=== PATIENT | male | born 1935 | race Asian ===

== ENCOUNTER → 2016-08-09 | Outpatient (CLI) | payer MEDICARE, OTHER ==
[~2016-08-09] MED LIST: ACET-66 PO; ACLI400A2 PO; ALLO100T PO; AMLO-512 PO; ATOR10TA69 PO; AZEL23SP NASAL; CINA30 PO; COLC0.6T69 PO; CYCL05OE OU; DUTA.5 PO; HC1C30 TP; HYDR25 PO; METF500T4 PO; METH1ADH TP; METO-325 PO; MONT10TA21 PO; OLOP2.5D OP; PREG75 PO; VIT1CAPS28 PO
== END | disposition home or self-care (01) ==
LOC: RADMN 09:16
PROVIDERS: ATTEND Internal Medicine Pulmonary Disease
DX: R91.1 Solitary pulmonary nodule (principal); I70.0 Atherosclerosis of aorta; I25.10 Atherosclerotic heart disease of native coronary artery without angina pectoris; D71 Functional disorders of polymorphonuclear neutrophils; K76.9 Liver disease, unspecified; N28.1 Cyst of kidney, acquired; M47.894 Other spondylosis, thoracic region
CPT/HCPCS: 71250

== ENCOUNTER → 2016-08-17 | Outpatient (CLI) | payer MEDICARE, OTHER | END | disposition home or self-care (01) | LOC: LABPV 14:47 | PROVIDERS: ATTEND Internal Medicine Pulmonary Disease | DX: J98.4 Other disorders of lung (principal) | CPT/HCPCS: 86171; 86480 ==

== ENCOUNTER → 2016-11-18 | Outpatient (CLI) | payer MEDICARE, OTHER ==
[~2016-11-18] MED LIST changes: +COLC0.6T67 PO; -COLC0.6T69 PO; -HC1C30 TP; -HYDR25 PO; +HYDR25TA84 PO; +HYDR28.45 TP; -METO-325 PO; +METO-558 PO
== END | disposition home or self-care (01) ==
LOC: RADMN 08:43
PROVIDERS: ATTEND Internal Medicine Pulmonary Disease
DX: J98.4 Other disorders of lung (principal); I70.0 Atherosclerosis of aorta; I25.10 Atherosclerotic heart disease of native coronary artery without angina pectoris; N28.1 Cyst of kidney, acquired; J84.10 Pulmonary fibrosis, unspecified
CPT/HCPCS: 71250

== ENCOUNTER → 2017-06-17 | Outpatient (CLI) | payer MEDICARE, OTHER | END | disposition home or self-care (01) | LOC: RADPV 08:05 | PROVIDERS: ATTEND Internal Medicine | DX: N28.1 Cyst of kidney, acquired (principal); K80.20 Calculus of gallbladder without cholecystitis without obstruction; R79.89 Other specified abnormal findings of blood chemistry | CPT/HCPCS: 76700 ==

== ENCOUNTER → 2017-07-28 | Outpatient (CLI) | payer MEDICARE, OTHER ==
[~2017-07-28] MED LIST changes: +METF-444 PO; -METF500T4 PO
== END | disposition home or self-care (01) ==
LOC: RADMN 08:59
PROVIDERS: ATTEND Internal Medicine
DX: N28.1 Cyst of kidney, acquired (principal); K57.30 Diverticulosis of large intestine without perforation or abscess without bleeding; I70.0 Atherosclerosis of aorta; K76.89 Other specified diseases of liver; D73.89 Other diseases of spleen
CPT/HCPCS: 74176

== ENCOUNTER 2018-08-27 09:46 | Emergency (ER) | payer MEDICARE, OTHER ==
[~2018-08-27] VITALS: Ht 165.1 cm; Wt 50.0 kg
[~2018-08-27 09:46] MED LIST changes: -ACLI400A2 PO; +ACLI400A3 PO; -AMLO-512 PO; +AMLO10TA7 PO
[2018-08-27 10:37] LABS: BASOPHILS % (AUTO) 0.9 % (0.0-2.0); EOSINOPHILS % (AUTO) 1.7 % (1.0-6.0); HEMATOCRIT 30.7 % (41-53); HEMOGLOBIN 10.1 g/dL (13.5-17.5); LYMPHOCYTES # (AUTO) 0.9 K/uL (1.0-4.8); LYMPHOCYTES % (AUTO) 20.9 % (22.0-44.0); MEAN CORPUSCULAR HEMOGLOBIN 29.8 pg (26.0-34.0); MEAN CORPUSCULAR HGB CONC 32.8 G/dL (31.0-37.0); MEAN CORPUSCULAR VOLUME 91 fL (80-100); MONOCYTES # (AUTO) 0.5 K/uL (0.1-1.0); MONOCYTES % (AUTO) 11.4 % (2.0-9.0); NEUTROPHILS # (AUTO) 2.8 K/uL (1.8-7.7); NEUTROPHILS % (AUTO) 65.1 % (40.0-70.0); PLATELET COUNT (AUTO) 152 K/uL (150-450); RED BLOOD CELL COUNT(AUTO) 3.38 MIL/uL (4.50-5.90); RED CELL DISTRIBUTION WIDTH 17.2 % (11.5-14.5)
[2018-08-27 10:46] LABS: CALCIUM, TOTAL 8.1 mg/dL (8.8-10.5); CREATININE 2.18 mg/dL (0.60-1.30); POTASSIUM 3.9 mmol/L (3.5-5.1); PROTHROMBIN TIME 10.9 SEC (9.4-11.6)
[2018-08-27] MEDS ORDERED: SODIUM CHLORIDE 0.9% 1,000 ML IV ONE (11:00)
[2018-08-27 11:11] LABS: ALBUMIN 3.5 g/dL (3.4-5.0); BILIRUBIN,TOTAL 0.5 mg/dL (0.1-1.0); TOTAL PROTEIN, SERUM 7.1 g/dL (6.4-8.2)
[2018-08-27 11:38] LABS: APPEARANCE,URINE CLEAR (CLEAR); BILIRUBIN,URINE NEGATIVE (NEGATIVE); GLUCOSE, URINE (UA) NEGATIVE (NEGATIVE); KETONES,URINE NEGATIVE (NEGATIVE); LEUKOCYTE ESTERASE ,URINE NEGATIVE (NEGATIVE); NITRATE,URINE NEGATIVE (NEGATIVE); OCCULT BLOOD,URINE NEGATIVE (NEGATIVE); UROBILINOGEN,URINE 0.2 mg/dL (<=1.0)
[2018-08-27 11:56] LABS: PROTEIN,URINE NEGATIVE (NEGATIVE)
[2018-08-27 14:01] VITALS: BP 141/64
== END 2018-08-27 14:03 | disposition home or self-care (01) ==
LOC: EMS 09:48
DX: R55 Syncope and collapse (principal); R20.2 Paresthesia of skin; R06.02 Shortness of breath; I13.10 Hypertensive heart and chronic kidney disease without heart failure, with stage 1 through stage 4 chronic kidney disease, or unspecified chronic kidney disease; N18.9 Chronic kidney disease, unspecified; E11.22 Type 2 diabetes mellitus with diabetic chronic kidney disease; J44.9 Chronic obstructive pulmonary disease, unspecified; E78.00 Pure hypercholesterolemia, unspecified; Z88.0 Allergy status to penicillin
CPT/HCPCS: 70450; 93005

== ENCOUNTER → 2018-10-03 | Outpatient (CLI) | payer MEDICARE, OTHER ==
[~2018-10-03] MED LIST changes: -ACLI400A3 PO; -AZEL23SP NASAL; -COLC0.6T67 PO; +COLC0.6T76 PO; -METH1ADH TP; -PREG75 PO
== END | disposition home or self-care (01) ==
LOC: RADMN 09:09
PROVIDERS: ATTEND Internal Medicine Pulmonary Disease
DX: J32.2 Chronic ethmoidal sinusitis (principal); J32.0 Chronic maxillary sinusitis; J32.1 Chronic frontal sinusitis
CPT/HCPCS: 70486

== ENCOUNTER 2023-08-01 11:55 | Emergency (ER) | payer MEDICARE, OTHER ==
[~2023-08-01] VITALS: Ht 162.6 cm; Wt 51.8 kg
[~2023-08-01 11:55] MED LIST changes: +ALLO-97 PO; -ALLO100T PO; +AMLO-258 PO; -AMLO10TA7 PO; +COLC0.6T73 PO; -COLC0.6T76 PO; -DUTA.5 PO; +DUTA0.5C38 PO; -HYDR28.45 TP; +HYDR30CR39 TP; +METO-325 PO; -METO-558 PO; +MONT-35 PO; -MONT10TA21 PO; -OLOP2.5D OP; +OLOP2.5D12 OP
[2023-08-01] MEDS ORDERED: METOPROLOL PO (12:22)
[2023-08-01] MEDS ORDERED: VARI50KI IM (12:22)
[2023-08-01] MEDS ORDERED: DUTA0.5C38 PO (12:22)
[2023-08-01] MEDS ORDERED: FINE10TA PO (12:22)
[2023-08-01] MEDS ORDERED: DAPA10TA PO (12:22)
[2023-08-01] MEDS ORDERED: LEVO2.5S4 PO (12:22)
[2023-08-01] MEDS ORDERED: SACU1TAB7 PO (12:22)
[2023-08-01] MEDS ORDERED: COLC0.6C PO (12:22)
[2023-08-01] MEDS ORDERED: FERR-82 PO (12:22)
[2023-08-01] MEDS ORDERED: DAPA10TA7 PO (12:22)
[2023-08-01] MEDS ORDERED: DUPI300S MISC (12:22)
[2023-08-01] MEDS ORDERED: FLUT1BLS3 IH (12:22)
[2023-08-01] MEDS ORDERED: AMLO5TAB66 PO (12:22)
[2023-08-01] MEDS ORDERED: DOCU100C34 PO (12:26)
[2023-08-01] MEDS ORDERED: SODI650T33 PO (12:26)
[2023-08-01] MEDS ORDERED: HYDR25TA84 PO (12:26)
[2023-08-01] MEDS ORDERED: ISOSORBIDE PO (12:26)
[2023-08-01 14:54] VITALS: TEMP 98
[2023-08-01] MEDS ORDERED: ISOS30TA92 PO (17:39)
[2023-08-01] MEDS ORDERED: LEVO5TAB13 PO (17:39)
[2023-08-01] MEDS ORDERED: METO25 PO (17:39)
[2023-08-01 17:54] LABS: BASOPHILS % (AUTO) 0.6 % (0.0-2.0); EOSINOPHILS % (AUTO) 3.4 % (1.0-6.0); HEMATOCRIT 28.8 % (41-53); HEMOGLOBIN 9.4 g/dL (13.5-17.5); LYMPHOCYTES # (AUTO) 1.7 K/uL (1.0-4.8); MEAN CORPUSCULAR HEMOGLOBIN 31.8 pg (26.0-34.0); MEAN CORPUSCULAR HGB CONC 32.7 G/dL (31.0-37.0); MEAN CORPUSCULAR VOLUME 97 fL (80-100); MONOCYTES # (AUTO) 0.5 K/uL (0.1-1.0); NEUTROPHILS # (AUTO) 1.7 K/uL (1.8-7.7); PLATELET COUNT (AUTO) 154 K/uL (150-450); RED BLOOD CELL COUNT(AUTO) 2.97 MIL/uL (4.50-5.90); RED CELL DISTRIBUTION WIDTH 18.1 % (11.5-14.5); WHITE BLOOD COUNT (AUTO) 4.1 K/uL (4.5-11.0)
[2023-08-01] MEDS: SODIUM CHLORIDE 0.9% 1,000 ML IV ONE (18:01)
[2023-08-01 18:04] LABS: CALCIUM, TOTAL 9.4 mg/dL (8.8-10.5); CREATININE 2.4 mg/dL (0.60-1.30); POTASSIUM 5.4 mmol/L (3.5-5.1)
[2023-08-01 18:08] LABS: PROTHROMBIN TIME 10.9 SEC (9.4-11.6)
[2023-08-01 18:13] LABS: TROPONIN I-HIGH SENSITIVITY 6 ng/L (<76)
[2023-08-01 19:13] VITALS: BP 160/67; PULSE 72; RESP 16
== END 2023-08-01 21:54 | disposition home or self-care (01) ==
LOC: EMS 11:55
DX: S06.0X0A Concussion without loss of consciousness, initial encounter (principal); J44.9 Chronic obstructive pulmonary disease, unspecified; I10 Essential (primary) hypertension; E11.9 Type 2 diabetes mellitus without complications; Z88.0 Allergy status to penicillin; Z79.899 Other long term (current) drug therapy; W18.40XA Slipping, tripping and stumbling without falling, unspecified, initial encounter; Y93.01 Activity, walking, marching and hiking; Y92.89 Other specified places as the place of occurrence of the external cause; Y99.8 Other external cause status
CPT/HCPCS: 99285; 70450; 96360; 71045; 80048; 84484; 85025; 85610; 85730; 36415; 72125; 93005; J7030